=== PATIENT | female | born 1950 | race Two or more races ===

== ENCOUNTER 2019-02-16 18:48 | Emergency (ER) | payer OTHER ==
[~2019-02-16] VITALS: Ht 152.4 cm; Wt 51.7 kg
[2019-02-16] MEDS ORDERED: CIPROFLOXACIN (19:01)
[2019-02-16] MEDS ORDERED: EMERGEN-C 500500 MG (19:03)
[2019-02-16] MEDS ORDERED: VITAMIN B-121000 MC4 (19:05)
[2019-02-16] MEDS ORDERED: [UNRECOGNIZED DRUG - CODE] (19:05)
[2019-02-16] MEDS ORDERED: METRONIDAZOLE500 MG (19:06)
[2019-02-16] MEDS ORDERED: FOLIC ACID1 MG (19:06)
[2019-02-17] MEDS ORDERED: LEVSIN/SL0.125 MG SL (01:18)
[2019-02-17] MEDS ORDERED: INTESTINEX680 M1 PO (01:18)
== END 2019-02-17 01:52 | disposition home or self-care (01) ==
LOC: ER 18:48
DX: K52.89 Other specified noninfective gastroenteritis and colitis (principal); K80.80 Other cholelithiasis without obstruction; R10.32 Left lower quadrant pain